=== PATIENT | male | born 1950 | race Caucasian/White ===

== ENCOUNTER 2016-10-30 19:12 | Observation (INO) | payer BC ==
[2016-10-30] MEDS ORDERED: ASPIRIN TABLET 325 MG TAB PO ONE (19:33)
[2016-10-30] MEDS ORDERED: SODIUM CHLORIDE 0.9% (FLUSH) 10 ML SYG IV PRN ×2 (19:33→23:27)
[2016-10-30] MEDS ORDERED: NITROGLYCERIN 0.4 MG 25 EA TAB SL ONE (19:33)
[2016-10-30] MEDS ORDERED: SODIUM CHLORIDE 0.9% 1000ML 500 ML IVS ONE ×2 (19:37→20:54)
[2016-10-30] MEDS ORDERED: METOPROLOL TARTRATE 25 MG TAB PO ONE (19:37)
[2016-10-30] MEDS ORDERED: HEPARIN SODIUM (PORCINE) 5,000 U/ML VIAL SUBCU ONE (19:38)
--- NOTE | 2016-10-30 20:11 | RAD ---
EXAM: Frontal chest X-ray obtained. CLINICAL INDICATION: CP COMPARISON: Chest x-ray from 01/23/15 FINDINGS: There is no focal airspace consolidation, pleural effusion or pneumothorax. There is stable enlargement of the cardiac silhouette without overt pulmonary vascular congestion. Visualized osseous structures appear intact and grossly unremarkable, given the nondedicated imaging. IMPRESSION: No focal airspace consolidation or overt pulmonary vascular congestion. Electronically signed by: Brady Foster MD 10/30/2016 8:09 PM CDT Workstation: [id number]
--- NOTE | 2016-10-30 22:52 | ED.PDOC ---
History of Present Illness - General Chief Complaint: Chest Pain/RI Stated Complaint: Chest palpatations, chest tightness Time Seen by Provider: 10/30/16 19:19 Source: patient Exam Limitations: no limitations - History of Present Illness Initial Comments: the patient is a 65-year-old male presenting to the emergency room secondary to palpitations that started while walking his dog. Very mild shortness of breath. No chest pain. No syncope or near syncope. The patient had been playing golf for the better part of the afternoon and had drank a few beers as well. 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 He did have stents placed about 6 or 7 years ago. He had apparently a normal catheterization and adenosine thallium scan about a year and a half ago. he did take his aspirin and metoprolol this morning. No history of atrial fibrillation. He was feeling fine prior to this. Timing/Duration: 1 hour Severity: moderate Improving Factors: nothing Worsening Factors: nothing Allergies/Adverse Reactions: Allergies NO KNOWN ALLERGY Allergy (Verified 09/03/12 08:42) Home Medications: Ambulatory Orders Aspirin EC 81 mg PO DAILY 01/22/15 Atorvastatin Calcium [Lipitor] 10 mg PO BEDTIME 01/22/15 Dapagliflozin Propanediol [Farxiga] 5 mg PO DAILY 01/22/15 Telmisartan [Micardis] 20 mg PO BID 01/22/15 Isosorbide Mononitrate 20 mg PO DAILY #30 tab 01/23/15 Metoprolol Tartrate 25 mg PO DAILY #30 tab 01/23/15 Review of Systems - Review of Systems Constitutional: States: no symptoms reported EENTM: States: no symptoms reported Respiratory: States: no symptoms reported. Denies: cough, orthopnea Cardiology: States: palpitations. Denies: chest pain, edema, syncope Genitourinary: States: no symptoms reported Musculoskeletal: States: no symptoms reported Skin: States: no symptoms reported Neurological: States: no symptoms reported Endocrine: States: no symptoms reported Past Medical History (General) - Patient Medical History Hx Seizures: No Hx Stroke: No Hx Dementia: No Hx Asthma: No Hx of COPD: No Hx Cardiac Disorders: Yes Hx Congestive Heart Failure: No Hx Pacemaker: No Hx Hypertension: Yes Hx Thyroid Disease: No Hx Diabetes: Yes Hx Gastroesophageal Reflux: No Hx Renal Disease: No Hx Cancer: No Hx of HIV: No Hx Hepatitis C: No Hx MRSA: No Surgical History: other - Vaccination History Hx Tetanus, Diphtheria Vaccination: Yes Hx Influenza Vaccination: Yes Immunizations Up to Date: Yes - Social History Hx Tobacco Use: No Hx Chewing Tobacco Use: No Hx Alcohol Use: Yes - social Hx Substance Use: No Hx Substance Use Treatment: No Hx Depression: No Feels Threatened In Home Enviroment: No Feels Threatened In a Relationship: No Hx Physical Abuse: No Hx Emotional Abuse: No Hx Suspected Abuse: No Family Medical History - Family History Mother Hx Family Cancer: Yes - mother Father Living Status: Hx Family Hypertension: Yes Hx Family Stroke: Yes Hx Cardiac Disease: Yes Hx Family Diabetes: Yes - type 2 Physical Exam - Physical Exam General Appearance: Alert, Comfortable, No apparent distress Eye Exam: bilateral normal Ears, Nose, Throat: hearing grossly normal, normal ENT inspection, normal pharynx Neck: non-tender, full range of motion, supple Respiratory: chest non-tender, lungs clear, normal breath sounds, no respiratory distress, no accessory muscle use Cardiovascular/Chest: normal peripheral pulses, no edema, tachycardia, irregularly irregular Peripheral Pulses: radial,right: 2+, radial,left: 2+, dorsalis pedis,right: 2+, dorsalis pedis,left: 2+ Gastrointestinal/Abdominal: non tender, soft Rectal Exam: deferred Back Exam: normal inspection, no CVA tenderness, no vertebral tenderness Extremity: normal range of motion, non-tender, normal inspection, no pedal edema , normal capillary refill 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, no motor/sensory deficits, alert, normal mood/affect, oriented x 3 Skin Exam: normal color Comments: Vital Signs - 24 hr 10/30/16 10/30/16 10/30/16 19:15 19:20 19:31 Temperature 98.6 F Pulse Rate 122 H 122 H Pulse Rate [ 122 H 122 H monitor] Respiratory 18 18 Rate Blood Pressure 125/59 [Left Arm] O2 Sat by Pulse 96 Oximetry 10/30/16 10/30/16 10/30/16 19:35 19:36 19:53 Temperature Pulse Rate Pulse Rate [ 112 H 118 H 128 H monitor] Respiratory 18 16 Rate Blood Pressure 125/70 121/78 121/73 [Left Arm] O2 Sat by Pulse 99 96 96 Oximetry 10/30/16 10/30/16 10/30/16 19:56 20:03 20:16 Temperature Pulse Rate Pulse Rate [ 116 H 113 H 120 H monitor] Respiratory 16 Rate Blood Pressure 111/71 130/79 103/66 [Left Arm] O2 Sat by Pulse 96 96 Oximetry 10/30/16 10/30/16 10/30/16 20:46 21:33 22:42 Temperature Pulse Rate Pulse Rate [ 79 70 56 L monitor] Respiratory 16 16 17 Rate Blood Pressure 108/74 102/69 91/60 [Left Arm] O2 Sat by Pulse 97 99 97 Oximetry Progress - Progress Progress: 10/30/16 22:54 the patient is a 65-year-old male presented secondary to what appears to be new onset atrial fibrillation with rapid ventricular rate. The second set of cardiac enzymes at 3 hours is negative. Cause of this may be mild dehydration and alcohol intake. The patient has received aspirin, a dose of Toprol, a trial of a nitroglycerin tablet, subcutaneous heparin. He is pain free and actually never had any pain. He is not short of breath. The patient will be admitted and monitored overnight. No evidence of hypoxia. Other lab work and x-rays look reassuring. Aside from the atrial fibrillation, changes on EKGs do not appear new. Admit for further telemetry monitoring. - Results/Orders Results/Orders: Laboratory Tests 10/30/16 10/30/16 10/30/16 19:30 19:30 19:30 WBC 6.4 RBC 4.59 L Hgb 14.9 Hct 44.1 MCV 96.1 H MCH 32.4 H MCHC 33.8 RDW 13.1 Plt Count 138 MPV 10.1 Absolute Neuts (auto) 4.40 Absolute Lymphs (auto) 1.40 Absolute Monos (auto) 0.40 Absolute Eos (auto) 0.10 Absolute Basos (auto) 0.10 Neutrophils % 69.6 Lymphocytes % 21.3 Monocytes % 6.6 Eosinophils % 1.6 Basophils % 0.9 PT 11.6 INR 1.030 PTT (SP) 31.7 D-Dimer, Quantitative < 230 Sodium 139 Potassium 3.7 Chloride 106 Carbon Dioxide 25 Anion Gap 11.7 L BUN 15 Creatinine 0.85 BUN/Creatinine Ratio 17.6 Random Glucose 159 H Serum Osmolality 281.7 Calcium 8.9 Magnesium 2.0 Total Bilirubin 0.6 AST 27 ALT 32 Alkaline Phosphatase 53 Creatine Kinase 494 H* CK-MB (CK-2) 6.9 H* CK-MB (CK-2) % 1.40 Troponin I < 0.02 B-Natriuretic Peptide 54.4 Serum Total Protein 7.0 Albumin 4.3 Globulin 2.7 Albumin/Globulin Ratio 1.6 TSH 1.51 Urine Color Urine Appearance Urine pH Ur Specific [place] Urine Protein Urine Glucose (UA) Urine Ketones Urine Blood Urine Nitrite Urine Bilirubin Urine Urobilinogen Ur Leukocyte Esterase Urine RBC Urine WBC Ur Epithelial Cells Urine Bacteria 10/30/16 10/30/16 19:50 22:15 WBC RBC Hgb Hct MCV MCH MCHC RDW Plt Count MPV Absolute Neuts (auto) Absolute Lymphs (auto) Absolute Monos (auto) Absolute Eos (auto) Absolute Basos (auto) Neutrophils % Lymphocytes % Monocytes % Eosinophils % Basophils % PT INR PTT (SP) D-Dimer, Quantitative Sodium Potassium Chloride Carbon Dioxide Anion Gap BUN Creatinine BUN/Creatinine Ratio Random Glucose Serum Osmolality Calcium Magnesium Total Bilirubin AST ALT Alkaline Phosphatase Creatine Kinase 452 H* CK-MB (CK-2) 6.1 H* CK-MB (CK-2) % 1.35 Troponin I < 0.02 B-Natriuretic Peptide Serum Total Protein Albumin Globulin Albumin/Globulin Ratio TSH Urine Color Yellow Urine Appearance Clear Urine pH 5.5 Ur Specific [place] <= 1.005 Urine Protein Negative Urine Glucose (UA) >=1000 H Urine Ketones Negative Urine Blood Trace-lysed H Urine Nitrite Negative Urine Bilirubin Negative Urine Urobilinogen 0.2 Ur Leukocyte Esterase Negative Urine RBC 0 Urine WBC 0 Ur Epithelial Cells 0 Urine Bacteria 0 initial EKG shows atrial fibrillation with rapid ventricular rate at a rate of 129 beats minute there are old changes on the EKG of possible Q waves in inferior leads and poor R-wave progression in anterior leads. There is possible one half millimeter elevation in V2. Repeat EKG after patient spontaneously cardioverted shows essentially the same changes but in a normal sinus rhythm at a rate of 70 beats a minute. No definitive changes on the EKG consistent with ischemia. EKG changes are consistent with the EKG from January 2015. chest x-ray appears benign. Departure - Departure Clinical Impression: Atrial fibrillation with rapid ventricular response Disposition: Admit Patient Referrals: Michel Booker MD [Primary Care Provider] - 1-2 Weeks Home Medications: Ambulatory Orders Aspirin EC 81 mg PO DAILY 01/22/15 Atorvastatin Calcium [Lipitor] 10 mg PO BEDTIME 01/22/15 Dapagliflozin Propanediol [Farxiga] 5 mg PO DAILY 01/22/15 Telmisartan [Micardis] 20 mg PO BID 01/22/15 Isosorbide Mononitrate 20 mg PO DAILY #30 tab 01/23/15 Metoprolol Tartrate 25 mg PO DAILY #30 tab 01/23/15 Decision To Admit - Decistion To Admit Decision to Admit Reason: Medical Nature Decision to Admit Date: 10/30/16 Decision to Admit Time: 22:56
--- NOTE | 2016-10-30 23:08 | HP ---
SUPERVISING PHYSICIAN: Nicola Tafoya MD CHIEF COMPLAINT: Palpitations. HISTORY OF PRESENT ILLNESS: Mr. Craig is a 65-year-old, male patient who presented to the Emergency Department after he started having palpitations while he was walking his dog today. He noted some mild shortness of breath, but no chest pains. He actually described it more as a pressure than pain. He had no syncope or near syncopal episodes. The patient had also been playing golf most of the day and had drank a few beers while golfing, but had no palpitations at that time. He does have a history of coronary artery disease and has been followed by Dr. Whitehead in [place]. He has had some stents placed about seven years previously and had a recent catheterization within the last year for similar episodes at which time he was admitted to the hospital here. At that time, he had adenosine thallium scan and catheterization , both of which indicated no interventions needed. He has no history of atrial fibrillation. On admission to the Emergency Department, EKG showed he was in atrial fibrillation with rapid ventricular rate of 122. He was hemodynamically stable with blood pressure of 125/59, respirations 18, saturation 96% on room air. Laboratory studies showed he had a normal white count. Hemoglobin 14.9, hematocrit 44.1 with normal differential. Coagulation studies were within normal limits. Chemistries showed normal electrolytes with potassium 3.7, BUN 15, creatinine 0.85, serum osmolality 71, liver functions within normal limits except for an elevated CPK of 494 initially with troponin less than 0.02. Cardiac enzymes were repeated at 3 hours and again showed CPK elevated at 452 and, again, troponin less than 0.02. BNP 54.4. Chest x-ray in the Emergency Department per radiologic interpretation showed there was no focal airspace or consolidation or pulmonary vascular congestion. He was given IV fluids along with some metoprolol 25 mg p.o. after which time he spontaneously converted to normal sinus rhythm. Given his past medical history and this recent onset of atrial fibrillation that spontaneously converted with some chest pressure type symptoms, the patient will now be placed in observation for continued telemetry and additional cardiac enzyme testing to further rule out any acute myocardial infarctions. PAST MEDICAL HISTORY: 1. Hypertension. 2. Diabetes mellitus2, type , on oral therapy. 3. Chronic sleep apnea using CPAP. 4. Cardiovascular disease with previous stent and similar episode of palpitations in 2015. PAST SURGICAL HISTORY: 1. Lumbar spine surgery. CURRENT MEDICATIONS: 1. Telmisartan 40 mg daily. 2. Metoprolol tartrate 12.5 mg daily. 3. Farxiga 5 mg daily. 4. Lipitor 10 mg at bedtime. 5. Aspirin 325 mg daily. ALLERGIES: NO KNOWN DRUG ALLERGIES. FAMILY HISTORY: Positive for transient ischemic attacks, coronary artery disease, diabetes mellitus, colon cancer. SOCIAL HISTORY: The patient works in [employer]. He lives in [place]. He is . He has used smokeless tobacco in the past, but has never smoked and he only drinks on occasion and does not use illicit drugs. REVIEW OF SYSTEMS: CONSTITUTIONAL: Denies any fevers, chills, or significant weight change. HEENT: He does wear hearing aids. Denies vision disturbances, syncope or syncopal episodes, cough, nasal congestion. RESPIRATORY: Denies shortness of breath, cough, exertional dyspnea. CARDIOVASCULAR: As noted in history of present illness, some chest tightness and pressure type symptoms with palpitations prior to arrival. After spontaneously converting, the patient has been free of any symptoms prior to admission. GASTROINTESTINAL: Denies nausea or vomiting. Denies diarrhea, constipation, blood in stools, change in bowel habits. GENITOURINARY: Denies dysuria, hematuria, or other urinary symptoms. EXTREMITIES: Denies weakness, pedal edema. NEUROLOGIC: No significant weakness, no syncopal episodes or other neurologic deficits. PHYSICAL EXAMINATION: VITAL SIGNS: Temperature on admission to the Emergency Room was 98.6. Pulse 122. EKG showing atrial fibrillation with rapid ventricular response. Blood pressure 125/59. Respirations 18. Saturation 96%. After IV fluids and a dose of metoprolol, the patient spontaneously converted to normal sinus rhythm, prior to admission. On admission to the Medical/Surgical Floor temperature was 98.6. Pulse 60. Blood pressure 114/70. Respiratory rate 16. O2 saturation 98 % on room air. Admission weight 102.0 kg. GENERAL: The patient appears to be well-nourished, well-hydrated and on admission to the Medical/Surgical Floor is in no acute distress. He is alert and cooperative. HEENT: He does have bilateral hearing aids in place. Oropharynx is pink, moist without any lesions. NECK: No jugular venous distention noted. Neck is supple, nontender, with full range of motion. CHEST: Lungs clear to auscultation bilaterally without any rhonchi, wheezes, or rales. CARDIOVASCULAR: Regular rate and rhythm without any appreciable murmurs, gallops, or rubs. ABDOMEN: Soft, nontender. Positive bowel sounds. EXTREMITIES: There is no cyanosis, clubbing or edema. NEUROLOGIC: The patient is alert and oriented times three. Cranial nerves II- XII are grossly intact. Facial features are symmetrical. Extraocular movements are within normal limits. There are no discernible localizing or focalizing neuromotor deficits. LABORATORY: CBC on admission showed white count 6.4, hemoglobin 14.9, hematocrit 414., platelet count 138,000. Differential within normal limits. Coagulation studies showed normal PT, PT-T, D-dimer. Chemistries showed normal electrolytes with BUN 15, creatinine 0.85, glucose 159, calcium 8.9, magnesium 2.0. Liver functions within normal limits except CPK elevated initially at 494 with CK-MB 6.9. CK-MB percentage was 1.4, troponin less than 0.02, TSH 1.51. Repeat of cardiac enzymes at 5 hours showed CPK still elevated, but down to 452 as well as CPK down to 6.1. Troponin remained at less than 0.02. Urinalysis showed dipstick greater than 1000 glucose, trace lysed blood. Otherwise, microscopic and dipstick were within normal limits. RADIOLOGY: Chest x-ray per radiologic interpretation showed no focal airspace consolidation or overt pulmonary vascular congestion. He had multiple EKGs on admission. Initial EKG on admission showed that he was in atrial fibrillation with a rapid ventricular response in the 120s. After spontaneous conversion after metoprolol, repeat EKG showed him to be in normal sinus rhythm with no significant ST or T wave changes. Compared to 01/22/15 EKG noted no significant acute changes. ASSESSMENT: 1. Chest pain associated with palpitations with noted initial 12-lead EKG showing atrial fibrillation with rapid ventricular response in the 120s requiring close observation to rule out underlying ischemic coronary changes with the patient having spontaneously converted to normal sinus rhythm after metoprolol and being hemodynamically stable. 2. History of coronary artery disease with a previous 95% occlusion of the right coronary that required stenting six years previously with no new significant findings in regards to his coronary artery disease since previous admission. 3. Elevated CPK, likely secondary to stress-induced ischemia from palpitations secondary to his atrial fibrillation with rapid ventricular response and some exacerbation by his moderate dehydration needing continued telemetry for close monitoring. 4. Diabetes mellitus, type 2, on oral hypoglycemic agents. 5. History of hypertension on medications. 6. History of kidney stones. 7. Chronic obstructive sleep apnea utilizing CPAP. PLAN: The patient will be placed in observation overnight to be monitored on telemetry with repeat cardiac enzymes in the morning to further assist in ruling out an acute coronary event. The patient was given subcutaneous heparin in the Emergency Department prior to admission. He was also given metoprolol in the Emergency Department and review of his medications shows that he is on 12.5. Given that he has had a new onset of atrial fibrillation and did convert with a single dose of metoprolol, consideration for increasing his metoprolol is warranted. However, in the past, he has had some episodes of hypotension associated with his metoprolol dosing. 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 Booker. Anticipate length of stay to be one to two days and probably discharge in the morning after repeat of cardiac enzymes and EKG. Once clinically stable, the patient can be discharged to have close clinical follow with both Dr. Booker and Dr. Phyllis Castillo with consideration for possible cardiac event monitor prior to discharge. Until discharge, we will continue to monitor the patient closely and treat appropriately. #[id number] [facility]
[2016-10-30] MEDS ORDERED: ACETAMINOPHEN 325 MG TAB PO PRN (23:27)
[2016-10-30] MEDS ORDERED: NITROGLYCERIN 0.4 MG 25 EA TAB SL PRN (23:27)
[2016-10-30] MEDS ORDERED: MORPHINE SULFATE INJ 10 MG/ML VIAL IV PRN (23:27)
[2016-10-30] MEDS ORDERED: ASPIRIN TABLET 325 MG TAB PO SCH (23:30)
[2016-10-30] MEDS ORDERED: IV SET AND CAP CHANGE INJ INJ SCH (23:30)
[2016-10-30] MEDS ORDERED: DEXTROSE 50% 25 GM/50 ML SYG IV PRN (23:31)
[2016-10-30] MEDS ORDERED: GLUCAGON INJ 1 MG VIAL SUBCU PRN (23:31)
[2016-10-31] MEDS: INSULIN LISPRO 100 UNITS/ML PEN SUBCU SCH ×2 (08:09→11:39)
[2016-10-31] MEDS ORDERED: DAPAGLIFLOZIN PROPANEDIOL 5 MG PO SCH (09:00)
[2016-10-31] MEDS ORDERED: ASPIRIN TABLET 325 MG TAB PO SCH (09:00)
[2016-10-31] MEDS ORDERED: SODIUM CHLORIDE 0.9% (FLUSH) 10 ML SYG IV SCH (09:00)
[2016-10-31] MEDS ORDERED: TELMISARTAN 40 MG PO SCH (09:00)
[2016-10-31] MEDS ORDERED: METOPROLOL TARTRATE 25 MG TAB PO SCH (09:00)
[2016-10-31 10:03] VITALS: BP 118/75; TEMP 97.3; O2SAT 95
--- NOTE | 2016-10-31 13:26 | DS ---
DISCHARGE DIAGNOSIS: 1. Acute atrial fibrillation with rapid ventricular response, showing conversion spontaneously to normal sinus rhythm after an extra dose of metoprolol tartrate given in the Emergency Room. 2. History of coronary artery disease with 95% occlusion of the right coronary, requiring stenting six years ago. 3. Repeat cardiac enzymes with troponin levels being 0. 4. History of diabetes mellitus, type 2, on oral hypoglycemic agents. 5. History of hypertension, yet fairly low blood pressure with adjustment of dosings of medicines accordingly. 6. History of kidney stones. 7. Chronic obstructive sleep apnea utilizing CPAP to assist with sleep at night. HISTORY OF PRESENT ILLNESS: This 65-year-old, white male is placed in the hospital for overnight observation from the Emergency Room after noticing significant palpitations while walking his dog after a day of golfing earlier in the day. It is of note that he does take metoprolol tartrate 12.5 mg q.a.m. Previous history of atrial fibrillation with rapid ventricular response also noted in the evening, possibly at a time when the metoprolol tartrate was at a lower level of functioning. He is also on telmisartan for his blood pressure, but his blood pressure has been quite low during his hospital stay at this time. The patient was placed in the hospital for a continuation of serial EKGs and cardiac enzymes to rule out any significant underlying ischemic coronary disease and none was noted. The patient was in normal sinus rhythm at the time fo his admission with pulse being quite slow overnight as continued close observation continued. LABORATORY: White count 5,900, hemoglobin stable at 14.3. INR 1.03. D-dimer under 230. Chemistries showed potassium up to 3.9, BUN 15, creatinine 0.86, glucose 96 fasting, calcium 8.4, magnesium 2, elevated CK noted at 494 down to 352 which may have been related to an active day of golf and heat exposure. Troponin on three occasions was 0. Beta natriuretic peptide 54.4. Albumin 4.3. Triglycerides 222, cholesterol 132, HDL 38, TSH 1.51. Urinalysis showed glycosuria and a trace of hematuria, otherwise clean. No cultures obtained. Chest x-ray on admission showed no acute findings. HOSPITAL COURSE: The patient was feeling much improved and was hungry, active and able to tolerated increased activity quite well with fairly normal sinus rhythm on EKG. Blood pressure has been quite low and will require further adjustment of medications especially to be used at home. PLAN: The patient will be discharged home to have close followup with Dr. Booker and Dr. Whitehead in clinics. Dr. Whitehead's office called and still awaiting a call back. He will continue with his home medications after discharge home except to increase the metoprolol tartrate to 12.5 mg twice a day to give him some additional beta blockade coverage at nighttime or eveningtime when he seems to have some of these spells of atrial fibrillation. Also, decrease the telmisartan from 40 mg to 20 mg daily. He is now taking 20 mg tablets, which are not splittable, 2 a day and he will now only take one a day, again, because of his blood pressure being so low and to make sure we do not aggravate this with the increased beta blockade as well. Observe blood pressure closely and avoid blood pressure below 110 systolic. Complete the 48 hour Holter monitoring and return for analysis. Return if not improving. #[id number] MTDD
[2016-10-31] MEDS ORDERED: ATORVASTATIN 10 MG TAB PO SCH (21:00)
== END 2016-10-31 13:36 | disposition home or self-care (01) ==
LOC: ER 19:12 → MS 23:06
PROVIDERS: ADMIT Nurse Practitioner Family; ATTEND Emergency Medicine
DX: I48.91 Unspecified atrial fibrillation (principal); I25.10 Atherosclerotic heart disease of native coronary artery without angina pectoris; E11.9 Type 2 diabetes mellitus without complications; I10 Essential (primary) hypertension; G47.33 Obstructive sleep apnea (adult) (pediatric); R06.02 Shortness of breath; Z95.5 Presence of coronary angioplasty implant and graft; Z79.84 Long term (current) use of oral hypoglycemic drugs; Z79.82 Long term (current) use of aspirin; Z79.899 Other long term (current) drug therapy; Z87.442 Personal history of urinary calculi; Z87.891 Personal history of nicotine dependence; Z82.3 Family history of stroke; Z82.49 Family history of ischemic heart disease and other diseases of the circulatory system; Z83.3 Family history of diabetes mellitus; Z80.0 Family history of malignant neoplasm of digestive organs
CPT/HCPCS: 36415 ×3; 36416 ×2; 71010; 80048; 80053; 80061; 81001; 82550 ×3; 82553 ×3; 82948 ×2; 83735; 83880; 84443; 84484 ×3; 85025 ×2; 85379; 85610; 85730; 93005 ×2; 93225; 94760 ×2; 96372; 99284; G0378; J1644; J7030 ×2

== ENCOUNTER → 2017-04-26 | Outpatient (CLI) | payer MEDICARE, BC | END | disposition home or self-care (01) | LOC: GMAB 10:21 | PROVIDERS: ATTEND Family Medicine | DX: Z12.5 Encounter for screening for malignant neoplasm of prostate (principal); E29.9 Testicular dysfunction, unspecified; I10 Essential (primary) hypertension | CPT/HCPCS: 84403; 84443; G0103 ==

== ENCOUNTER → 2017-05-19 | Outpatient (CLI) | payer BC, MEDICARE ==
--- NOTE | 2017-05-22 08:00 | US ---
EXAM DESCRIPTION: Soft Tissue,Head/Neck CLINICAL HISTORY: THYROID NODULE COMPARISON: None Available. TECHNIQUE: Grayscale thyroid sonography FINDINGS: Thyroid sonography demonstrates the right lobe 4.3 x 1.5 x 1.9 cm and the left lobe 4.1 x 1.5 x 1.4 cm with a 3 mm thick isthmus. The left lobe of the thyroid demonstrates no cystic or solid masses or abnormal lesions and no abnormalities of the isthmus noted. In the medial aspect of the right lobe adjacent to the isthmus is a wider than tall isoechoic 5 x 7 x 9 mm nodule that demonstrates a well-formed capsule or hypoechoic pseudocapsule that is smoothly marginated. No further workup of this nodule at this time or consideration for fine needle aspiration recommended. One to two year follow-up with reexamination is recommended. Prior studies for comparison for stability are not available at this institution at this time IMPRESSION: Isoechoic wider than tall 9 mm nodule medial right lobe of the thyroid adjacent to the isthmus with smooth margination measuring 5 x 7 x 9 mm. Additional thyroid nodules are not identified. Follow-up examination in one to two years for stability recommended. Electronically signed by: Kamron Arellano MD 05/22/2017 7:59 AM FACTORY ASSEMBLER
== END ==
LOC: US 08:30
PROVIDERS: ATTEND Family Medicine
DX: E04.1 Nontoxic single thyroid nodule (principal)

== ENCOUNTER 2017-09-24 08:03 | Emergency (ER) | payer MEDICARE, BC ==
[2017-09-24 08:20] VITALS: TEMP 98.9
--- NOTE | 2017-09-24 08:25 | ED.PDOC ---
History of Present Illness - General Chief Complaint: Headache Stated Complaint: Headache Time Seen by Provider: 09/24/17 08:17 Source: patient Exam Limitations: no limitations - History of Present Illness Timing/Duration: increasing, other - 2-3 days Quality: achy - occasional sharp twinges, constant Head Injury Location: occipital - and into neck Recent Head Trauma: no recent headache/trauma Improving Factors: nothing Worsening Factors: movement - neck is stiff Associated Symptoms: fever/chills, nasal congestion, nasal drainage, stiff neck Allergies/Adverse Reactions: Allergies NO KNOWN ALLERGY Allergy (Verified 09/03/12 08:42) Home Medications: Ambulatory Orders Atorvastatin Calcium [Lipitor] 10 mg PO BEDTIME 01/22/15 Dapagliflozin Propanediol [Farxiga] 5 mg PO DAILY 01/22/15 Apixaban [Eliquis] 5 mg PO BID 09/24/17 Cyclobenzaprine HCl 5 - 10 mg PO TID PRN #20 tab 09/24/17 Metoprolol Succinate [Toprol Xl] 25 mg PO DAILY 09/24/17 Telmisartan [Micardis] 20 mg PO BEDTIME 09/24/17 Review of Systems - Review of Systems Constitutional: States: fever - subjective EENTM: States: see HPI, nose congestion Respiratory: States: no symptoms reported Cardiology: States: no symptoms reported Gastrointestinal/Abdominal: States: no symptoms reported Genitourinary: States: no symptoms reported Musculoskeletal: States: no symptoms reported Skin: States: no symptoms reported Neurological: States: headache Endocrine: States: no symptoms reported Hematologic/Lymphatic: States: no symptoms reported Past Medical History (General) - Patient Medical History Hx Seizures: No Hx Stroke: No Hx Dementia: No Hx Asthma: No Hx of COPD: No Hx Cardiac Disorders: Yes Hx Congestive Heart Failure: No Hx Pacemaker: No Hx Hypertension: Yes Hx Thyroid Disease: No Hx Diabetes: Yes Hx Gastroesophageal Reflux: No Hx Renal Disease: No Hx Cancer: No Hx of HIV: No Hx Hepatitis C: No Hx MRSA: No - Vaccination History Hx Tetanus, Diphtheria Vaccination: Yes Hx Influenza Vaccination: Yes - Social History Hx Tobacco Use: No Hx Chewing Tobacco Use: No Hx Alcohol Use: Yes - social Hx Substance Use: No Hx Substance Use Treatment: No Hx Depression: No Hx Physical Abuse: No Hx Emotional Abuse: No Hx Suspected Abuse: No Family Medical History - Family History Mother Hx Family Cancer: Yes - mother Father Living Status: Hx Family Hypertension: Yes Hx Family Stroke: Yes Hx Cardiac Disease: Yes Hx Family Diabetes: Yes - type 2 Physical Exam - Physical Exam General Appearance: Alert, Anxious Eyes, Ears, Nose, Throat Exam: PERRL/EOMI, TMs normal, pharynx normal, other - nasal congestion with erythematous mucosa and yellow discharge Neck: full range of motion, supple - mild tenderness to paracervical muscles 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, 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 Exam: normal speech, PERRL, hearing deficit (R), hearing deficit (L) - wears hearing aids, other - normal CN 2-12 exam Skin Exam: warm/dry Departure - Departure Clinical Impression: Sinusitis Qualifiers: Sinusitis location: maxillary Chronicity: acute Recurrence: non-recurrent Qualified Code(s): J01.00 - Acute maxillary sinusitis, unspecified Headache Qualifiers: Headache type: tension-type Headache chronicity pattern: acute headache Intractability: not intractable Qualified Code(s): G44.209 - Tension-type headache, unspecified, not intractable Disposition: Discharge to Home or Self Care Departure Forms: ED Discharge - Pt. Copy, Patient Portal Self Enrollment Instructions: DI for Headache Referrals: Michel Booker MD [Primary Care Provider] - 1-2 Weeks Prescriptions: Cyclobenzaprine HCl 5 - 10 mg PO TID PRN #20 tab PRN Reason: Headache Or Mild Pain Home Medications: Ambulatory Orders Atorvastatin Calcium [Lipitor] 10 mg PO BEDTIME 01/22/15 Dapagliflozin Propanediol [Farxiga] 5 mg PO DAILY 01/22/15 Apixaban [Eliquis] 5 mg PO BID 09/24/17 Cyclobenzaprine HCl 5 - 10 mg PO TID PRN #20 tab 09/24/17 Metoprolol Succinate [Toprol Xl] 25 mg PO DAILY 09/24/17 Telmisartan [Micardis] 20 mg PO BEDTIME 09/24/17
[2017-09-24 09:14] VITALS: BP 142/91; O2SAT 97
== END 2017-09-24 09:14 | disposition home or self-care (01) ==
LOC: ER 08:03
DX: G44.209 Tension-type headache, unspecified, not intractable (principal); J01.00 Acute maxillary sinusitis, unspecified; I10 Essential (primary) hypertension; E11.9 Type 2 diabetes mellitus without complications; Z79.01 Long term (current) use of anticoagulants; Z79.899 Other long term (current) drug therapy

== ENCOUNTER → 2018-05-22 | Outpatient (CLI) | payer MEDICARE, BC ==
--- NOTE | 2018-05-22 13:43 | US ---
US THYROID CLINICAL STATEMENT: NODULE. COMPARISON: Soft tissue thyroid ultrasound 05/19/2017. FINDINGS: Size right thyroid lobe: 4.3 x 1.7 x 1.5 cm Size left thyroid lobe: 3.7 x 1.1 x 1.1 cm Size isthmus: 0.3 cm Estimated total number of nodules greater than or equal to 1 cm: 1. Heterogeneous echoes. Nodule 1: Size: 1.1 x 1.1 x 0.8 cm Location: Right Mid Composition: mixed cystic and solid: 1 point. Nonvascular. Echogenicity: hypoechoic: 2 points. The mural nodule was hypoechoic. Shape: wider than tall: 0 points Margins: smooth: 0 points Echogenic foci: large comet tail artefact: 0 points. Compared to the prior study, the fluid component has enlarged. The solid mural component appears stable. ACR Total Points: 3; ACR TI-RADS risk category: TR3 - mildly suspicious nodule. No dominant solid mass or distinct cyst in the surrounding soft tissues. No parenchymal edema or large calcifications. No overlying skin changes. No abnormal vascularity. IMPRESSION: 1. Nodule 1: ACR TI-RADS 2017 Category TR3. Recommend: No further follow-up. Recommendations based upon [employer] recommendations and ACR TI-RADS 2017 guidelines. Please see below*. (Increased fluid component since prior study one year ago.) 2. Soft tissue around the thyroid gland is unremarkable. *ACR TI-RADS 2017 Recommendations: TR1: No FNA or follow up TR2: No FNA or follow up TR3: FNA if >/= 2.5 cm, follow up if 1.5 - 2.4 cm in 1, 3, and 5 years TR4: FNA if >/= 1.5 cm, follow up if 1.0 - 1.4 cm in 1, 2, 3, and 5 years TR5: FNA if >/= 1.0 cm, follow up if 0.5 - 0.9 cm every year for 5 years ACR TI-RADS recommends that no more than two nodules with the highest ACR TI-RADS total point should be biopsied and no more than four nodules should be followed. Electronically signed by: Silver Carr MD 05/22/2018 1:42 PM [facility]
== END ==
LOC: US 09:30
PROVIDERS: ATTEND Family Medicine
DX: E04.1 Nontoxic single thyroid nodule (principal)

== ENCOUNTER → 2019-07-03 | Outpatient (CLI) | payer MEDICARE, BC | CPT/HCPCS: 84443; G0103 ==

== ENCOUNTER 2020-03-16 10:22 | Outpatient (CLI) | payer MEDICARE, BC ==
[2020-03-16 11:52] VITALS: TEMP 97.7; O2SAT 98
[2020-03-16 13:44] VITALS: BP 164/94
== END 2020-03-16 15:15 | disposition home or self-care (01) ==
LOC: INFRM 10:22
PROVIDERS: ATTEND Family Medicine
DX: U07.1 COVID-19 (principal); E11.9 Type 2 diabetes mellitus without complications; I48.91 Unspecified atrial fibrillation; Z23 Encounter for immunization

== ENCOUNTER 2020-06-22 05:35 | Day surgery (SDC) | payer MEDICARE, BC ==
[2020-06-22] MEDS ORDERED: DEXAMETHASONE INJ 10 MG/ML VIAL ONE (07:04)
[2020-06-22] MEDS ORDERED: BETAMETHASONE ACETATE/BETAMETH 6 MG/ML VIAL IM ONE (07:04)
[2020-06-22] MEDS ORDERED: LIDOCAINE 1% 10 ML VIAL INJ ONE (07:04)
[2020-06-22] MEDS ORDERED: BUPIVACAINE 0.5% 30 ML VIAL INJ ONE (07:05)
[2020-06-22 11:08] VITALS: BP 149/91; TEMP 98.3; O2SAT 97
== END 2020-06-22 10:13 | disposition home or self-care (01) ==
LOC: AMB 05:35
PROVIDERS: ATTEND Family Medicine Sports Medicine
DX: M54.5 Low back pain (principal); M47.896 Other spondylosis, lumbar region; I48.91 Unspecified atrial fibrillation; I25.10 Atherosclerotic heart disease of native coronary artery without angina pectoris; E78.5 Hyperlipidemia, unspecified; I10 Essential (primary) hypertension; E11.9 Type 2 diabetes mellitus without complications; Z83.3 Family history of diabetes mellitus; Z80.0 Family history of malignant neoplasm of digestive organs; Z79.01 Long term (current) use of anticoagulants; Z79.899 Other long term (current) drug therapy
CPT/HCPCS: 64493; 64494; 64495; 76000; G0260